=== PATIENT | female | born 1945 | race Two or more races ===

== ENCOUNTER 2024-04-12 15:17 | Inpatient (IN) | payer OTHER ==
[~2024-04-12] VITALS: Ht 165.1 cm; Wt 65.8 kg
--- NOTE | 2024-04-12 15:29 | NUR ---
SE RECIBE PTE ALERTA Y DESORIENTADA EN TIEMPO Y LUGAR, QUIEN VIENE DESDE HOGAR EN AMBULANCIA POR PRESUNTA CAIDA EL VIERNES /. RINA PERSONAL DE AMBULANCIA A PTE LE REALIZARON XRAYS DONDE SE MUESTRA FRACTURA DE CADERA IZQUIERDA. AL MOMENTO DE TRIAGE PTE NIEGA DOLOR Y NO SE PRESENTA PLACA DE XRAYS. SE MIDEN SV Y SE UBICA.
[2024-04-12] MEDS ORDERED: TRAZODONE HCL150 MG PO (16:12)
[2024-04-12] MEDS ORDERED: HORIZANT300 MG PO (16:12)
[2024-04-12] MEDS ORDERED: DULOXETINE HCL40 MG PO (16:13)
[2024-04-12] MEDS ORDERED: ACETAMINOPHEN 500 MG GEL..CAP PO ONE ×2 (17:15→17:29)
[2024-04-12 17:42] LABS: HEMATOCRIT 34.9 % (36.0-45.00); MEAN CELL VOLUME 101.3 fL (80.00-100.00); MEAN CORPUSCULAR HEMOGLOBIN 34.9 pg (27.00-32.0); MEAN CORPUSCULAR HGB CONC 34.4 g/dl (32.0-36.0); PLATELET COUNT 194 K/uL (150-450); RED BLOOD COUNT 3.44 M/uL (4.00-6.00)
[2024-04-12 18:14] LABS: CALCIUM 9.4 mg/dL (8.5-10.1); CREATININE SERUM 0.83 mg/dL (0.55-1.02); GFR 65.98; POTASSIUM 4.2 mEq/L (3.5-5.1)
[2024-04-12 18:15] LABS: INR 0.98; PARTIAL THROMBOPLASTIN TIME 25.8 SECONDS (22.0-34.0); PROTHROMBIN TIME 10.7 SECONDS (9.0-11.5)
--- NOTE | 2024-04-12 19:00 | NUR ---
SE ORIENTA PTE SOBRE TX, REFIERE ENTENDER Y ACEPTAR. SE LE BRADY MUESTRAS DE LABORATORIO Y SE INSERTA CAMPOS BAJO MEDIDAS ESTERILES. SE NOTIFICAN XRAYS.
[2024-04-12] MEDS ORDERED: GABAPENTIN 300 MG CAPSULE PO SCH (22:43)
[2024-04-12] MEDS ORDERED: ACETAMINOPHEN 500 MG GEL..CAP PO PRN (22:45)
[2024-04-12] MEDS ORDERED: 0.9 % SODIUM CHLORIDE 1,000 ML IV SCH (22:45)
[2024-04-12] MEDS ORDERED: MORPHINE SULFATE 4 MG/ML CARTRIDGE IV PRN (22:45)
[2024-04-13 01:57] VITALS: BP 121/64; O2SAT 99
[2024-04-13 04:25] LABS: PH,URINE 6.5 (5.0-8.0); URINE APPEARANCE Clear; URINE BILIRRUBIN Negative (NEGATIVE); URINE BLOOD NHT; URINE COLOR Yellow; URINE GLUCOSE Negative (NEGATIVE); URINE KETONE Negative (NEGATIVE); URINE LEUKOCYTE Moderate; URINE NITRATE Negative; URINE PROTEIN Negative (NEGATIVE); URINE UROBILINOGEN 0.2 E.U./dl
[2024-04-13 04:30] LABS: URINE BACTERIA 435.7 uL (0.0-1933); URINE RBC 24.1 uL (0.0-20.8); URINE WBC 139.4 uL (0.0-23.2)
[2024-04-13 04:45] LABS: URINE CAST 0.29 uL (0.0-1.40)
[2024-04-13 05:29] VITALS: BP 112/63; O2SAT 97
[2024-04-13] MEDS ORDERED: PROMETHAZINE HCL 50 MG/ML AMPUL IM PRN (08:00)
[2024-04-13] MEDS ORDERED: CEFAZOLIN SODIUM 1,000 MG VIAL IV ONE (08:00)
[2024-04-13] MEDS ORDERED: 0.9 % SODIUM CHLORIDE 1,000 ML IV SCH (08:00)
[2024-04-13] MEDS ORDERED: MEPERIDINE HCL/PF 50 MG/ML VIAL IM PRN (08:00)
[2024-04-13] MEDS ORDERED: OxyCODONE HCL/APAP UD (PERCOCET) PO PRN (08:00)
[2024-04-13 08:46] VITALS: BP 130/60; O2SAT 97
[2024-04-13] MEDS ORDERED: Duloxetine HCl 60 MG CAPSULE.DR PO SCH (09:00)
[2024-04-13] MEDS ORDERED: FAMOTIDINE/PF 20 MG in 0.9 % SODIUM CHLORIDE 8 ML IV PUSH SCH (09:00)
[2024-04-13 10:12] LABS: HEMATOCRIT 36.8 % (36.0-45.00); HEMOGLOBIN 12.5 g/dL (12.0-15.00); MEAN CORPUSCULAR HEMOGLOBIN 35.5 pg (27.00-32.0); MEAN CORPUSCULAR HGB CONC 34.1 g/dl (32.0-36.0); PLATELET COUNT 199 K/uL (150-450); RED BLOOD COUNT 3.53 M/uL (4.00-6.00); RED CELL DISTRIBUTION WIDTH 13.3 % (11.5-14.5)
[2024-04-13 10:49] LABS: INR 0.97; PARTIAL THROMBOPLASTIN TIME 26.8 SECONDS (22.0-34.0); PROTHROMBIN TIME 10.6 SECONDS (9.0-11.5)
[2024-04-13 11:13] LABS: CALCIUM 9.2 mg/dL (8.5-10.1); MAGNESIUM 2.1 mg/dL (1.8-2.4); PHOSPHOROUS 3.7 mg/dL (2.5-4.9)
[2024-04-13] MEDS ORDERED: CEFAZOLIN SODIUM 1,000 MG VIAL IV STA (11:51)
[2024-04-13 16:25] VITALS: BP 119/67; O2SAT 94
[2024-04-14 01:00] VITALS: BP 123/60
[2024-04-14] MEDS ORDERED: CEFAZOLIN SODIUM 1,000 MG VIAL IV SCH ×2 (06:00→17:00)
[2024-04-14 09:06] VITALS: BP 128/61; O2SAT 97
[2024-04-14] MEDS ORDERED: ISOPROPYL ALCOHOL 30 ML OUNCE TOP ONE (13:36)
[2024-04-14] MEDS ORDERED: CEFAZOLIN SODIUM 1,000 MG VIAL ONE ×2 (13:36→18:10)
[2024-04-14] MEDS ORDERED: VANCOMYCIN HCL 1,000 MG VIAL ONE (13:36)
[2024-04-14] MEDS ORDERED: TRANEXAMIC ACID 100MG/1ML (1000MG) AMPUL IV ONE (13:45)
[2024-04-14] MEDS ORDERED: METHYLPREDNISOLONE ACETATE 80 MG/ML VIAL ONE (14:16)
[2024-04-14] MEDS ORDERED: BUPIVACAINE HCL/MPF 0.5% 30ML VIAL ONE (14:16)
[2024-04-14] MEDS ORDERED: POVIDONE-IODINE 118 ML BOTT TOP ONE (14:52)
[2024-04-14] MEDS ORDERED: MORPHINE SULFATE 4 MG/ML CARTRIDGE IV PRN (17:00)
[2024-04-14] MEDS ORDERED: OxyCODONE HCL 5 MG TABLET (ROXICODONE) PO PRN (17:00)
[2024-04-14] MEDS ORDERED: ONDANSETRON HCL 2 MG/ML VIAL IV PRN (17:00)
[2024-04-14] MEDS ORDERED: GABAPENTIN 300 MG CAPSULE PO SCH (17:00)
[2024-04-14] MEDS ORDERED: SODIUM CHLORIDE 0.45 % 1,000 ML IV SCH (17:00)
[2024-04-14] MEDS ORDERED: ACETAMINOPHEN 500 MG GEL..CAP PO SCH (18:00)
[2024-04-14 18:56] VITALS: BP 111/62; O2SAT 97
[2024-04-15 01:30] VITALS: BP 107/50
[2024-04-15 05:06] LABS: HEMATOCRIT 28.4 % (36.0-45.00); MEAN CELL VOLUME 102.2 fL (80.00-100.00); MEAN CORPUSCULAR HGB CONC 35.3 g/dl (32.0-36.0); PLATELET COUNT 167 K/uL (150-450); RED BLOOD COUNT 2.78 M/uL (4.00-6.00); RED CELL DISTRIBUTION WIDTH 13.1 % (11.5-14.5)
[2024-04-15 05:25] LABS: MEAN CORPUSCULAR HEMOGLOBIN 35.9 pg (27.00-32.0)
[2024-04-15 08:35] VITALS: BP 138/59; O2SAT 97
[2024-04-15] MEDS ORDERED: APIXABAN 2.5 MG TABLET PO SCH (09:00)
[2024-04-15] MEDS ORDERED: SENNOSIDES 1 TAB TABLET PO SCH (09:00)
[2024-04-15 16:58] VITALS: BP 127/66; O2SAT 97
[2024-04-16 02:01] VITALS: BP 119/61
[2024-04-16 06:20] LABS: HEMATOCRIT 28.3 % (36.0-45.00); MEAN CELL VOLUME 101.4 fL (80.00-100.00); MEAN CORPUSCULAR HEMOGLOBIN 35.8 pg (27.00-32.0); MEAN CORPUSCULAR HGB CONC 35.3 g/dl (32.0-36.0); PLATELET COUNT 202 K/uL (150-450); RED CELL DISTRIBUTION WIDTH 13.1 % (11.5-14.5)
[2024-04-16 09:00] VITALS: BP 109/56
[2024-04-16] MEDS ORDERED: IRON FUM,PS/FOLIC ACID/VITC/B3 1 CAP CAPSULE PO SCH (09:00)
== END 2024-04-16 12:22 | disposition home or self-care (01) | DRG 522 ==
LOC: ER 15:17 → MEDI 22:45
PROVIDERS: Emergency Medicine; General Practice; Orthopaedic Surgery; ADMIT Internal Medicine; ATTEND Internal Medicine
PROC: 0MBM0ZZ Excision of Left Hip Bursa and Ligament, Open Approach (ICD-10-PCS; 2024-04-14)
PROC: 0QU70JZ Supplement Left Upper Femur with Synthetic Substitute, Open Approach (ICD-10-PCS; 2024-04-14)
PROC: 0SRS0JZ Replacement of Left Hip Joint, Femoral Surface with Synthetic Substitute, Open Approach (ICD-10-PCS; principal; 2024-04-14 12:15)
DX: S72.032A Displaced midcervical fracture of left femur, initial encounter for closed fracture (principal); W18.09XA Striking against other object with subsequent fall, initial encounter; Y92.128 Other place in nursing home as the place of occurrence of the external cause; M81.0 Age-related osteoporosis without current pathological fracture; M16.12 Unilateral primary osteoarthritis, left hip; I10 Essential (primary) hypertension